=== PATIENT | male | born 1975 | race Caucasian/White ===

== ENCOUNTER 2018-02-14 13:49 | Emergency (ER) | payer OTHER ==
[~2018-02-14] VITALS: Ht 185.4 cm; Wt 145.2 kg
[~2018-02-14 13:49] MED LIST: (None)20 M1 PO; ALBU.083IS IH; ALBU90I INH; ALBU90OI INH; ALBU90OI6 INH; ALBUIS IH; AMOX500 PO; AZIT250 PO; AZIT500 PO; Advair Hfa 230-12 GM INH; CETI10 PO; DIPH50 PO; DOXY100 PO; ERYT500 PO; FLUSAL1005 IH; FLUSAL5005 INH; HYDACE5 PO; IBUP800 PO; IPRAIS NEB; KETO10 PO; NO ROUTINE MEDS; PRED10 PO; PRED20 PO; PRED5 PO; PROM25 PO; Percocet 5-3251 EACH PO; Prednisone20 MG PO; Ra Anti-Tussiv237 ML PO; SPACE CHAMBER1 EACH MC; Valium5 MG PO; Zithromax250 MG PO; Zofran8 MG PO
[2018-02-14] MEDS ORDERED: HEART MED (14:17)
[2018-02-14] MEDS ORDERED: IBUP800 PO (16:17)
== END 2018-02-14 16:28 | disposition home or self-care (01) ==
LOC: ER 13:49
DX: S81.811A Laceration without foreign body, right lower leg, initial encounter (principal); W22.8XXA Striking against or struck by other objects, initial encounter; Z88.8 Allergy status to other drugs, medicaments and biological substances; Z79.899 Other long term (current) drug therapy; Z79.52 Long term (current) use of systemic steroids; J45.909 Unspecified asthma, uncomplicated
CPT/HCPCS: 12001; 73590; 99283

== ENCOUNTER 2018-02-27 11:27 | Emergency (ER) | payer OTHER ==
[~2018-02-27] VITALS: Ht 188 cm; Wt 154.2 kg
[~2018-02-27 11:27] MED LIST changes: +HEART MED
[2018-02-27] MEDS ORDERED: CEPH500 PO (12:25)
== END 2018-02-27 12:32 | disposition home or self-care (01) ==
LOC: ER 11:27
DX: S81.811D Laceration without foreign body, right lower leg, subsequent encounter (principal); L03.115 Cellulitis of right lower limb; J45.909 Unspecified asthma, uncomplicated; Z88.8 Allergy status to other drugs, medicaments and biological substances; Z79.52 Long term (current) use of systemic steroids; Z79.2 Long term (current) use of antibiotics

== ENCOUNTER 2018-10-05 15:05 | Emergency (ER) | payer OTHER ==
[~2018-10-05] VITALS: Ht 188 cm; Wt 158.8 kg
[~2018-10-05 15:05] MED LIST changes: +CEPH500 PO
[2018-10-05] MEDS ORDERED: PRED20 PO (18:09)
== END 2018-10-05 18:18 | disposition home or self-care (01) ==
LOC: ER 15:05
DX: J40 Bronchitis, not specified as acute or chronic (principal); Z88.8 Allergy status to other drugs, medicaments and biological substances; Z79.899 Other long term (current) drug therapy; J45.909 Unspecified asthma, uncomplicated; F17.220 Nicotine dependence, chewing tobacco, uncomplicated
CPT/HCPCS: 71046; 99283-25

== ENCOUNTER 2019-02-22 15:38 | Inpatient (IN) | payer OTHER ==
[~2019-02-22] VITALS: Ht 182.9 cm; Wt 147.0 kg
[2019-02-22] MEDS ORDERED: BUDE10.22 INH (15:52)
[2019-02-22 16:31] LABS: BASOPHILS ABSOLUTE AUTO 0.08 K/mm3 (0.00-0.23); BASOPHILS PERCENT AUTO 1 % (0-2); EOSINOPHILS ABSOLUTE AUTO 0.14 K/mm3 (0.00-0.68); EOSINOPHILS PERCENT AUTO 1 % (0-6); Hematocrit 44.8 % (37.0-53.0); Hemoglobin 14.5 g/dL (13.5-17.5); IMMATURE GRAN ABSOLUTE AUTO 0.04 K/mm3 (0.00-0.10); IMMATURE GRAN PERCENT AUTO 0 % (0-1); LYMPHOCYTES ABSOLUTE AUTO 1.72 K/mm3 (0.84-5.20); LYMPHOCYTES PERCENT AUTO 15 % (21-46); MONOCYTES ABSOLUTE AUTO 1.37 K/mm3 (0.16-1.47); MONOCYTES PERCENT AUTO 12 % (4-13); Mean Corpuscular HGB Conc 32.4 g/dL (31.5-36.5); Mean Corpuscular Volume 96 fL (80-100); Mean Platelet Volume 10.7 fL (9.1-12.4); NEUTROPHILS ABSOLUTE AUTO 8.43 K/mm3 (1.96-9.15); NEUTROPHILS PERCENT AUTO 72 % (41-73); Platelet Count 185 K/mm3 (150-400); RDW Coefficient Variation 12.6 % (11.7-14.2); Red Blood Cell Count 4.67 M/mm3 (4.30-5.90); White Blood Cell Count 11.78 K/mm3 (4.00-11.30)
[2019-02-22 17:12] LABS: Alanine Aminotransfer (ALT/SGP 32 U/L (12-78); Albumin, Blood 3.7 g/dL (3.4-5.0); Albumin/Globulin Ratio 1.2 (0.8-1.8); Alk Phos 85 U/L (50-136); Anion Gap 7 mmol/L (6-16); Aspartate Aminotrans (AST/SGOT 22 U/L (12-37); Bilirubin, Total 0.5 mg/dL (0.1-1.0); Blood Urea Nitrogen 7 mg/dL (8-24); Bun/Creatinine Ratio 6.8 (12.0-20.0); CO2, Blood 28 mmol/L (21-32); Calcium, Blood 8.3 mg/dL (8.5-10.1); Chloride, Blood 107 mmol/L (98-108); Creatinine, Blood 1.03 mg/dL (0.60-1.20); Globulin, Blood 3.1 g/dL (2.2-4.0); Glomerular Filtration Rate >60 (60-); Glucose, Blood 101 mg/dL (70-99); Potassium, Blood 3.2 mmol/L (3.5-5.5); Sodium, Blood 142 mmol/L (136-145); Total Protein, Blood 6.8 g/dL (6.4-8.2); Troponin I 0.069 ng/mL (0.000-0.040)
[2019-02-22] MEDS ORDERED: Amlodipine Bes2.5 MG PO (17:54)
[2019-02-22] MEDS ORDERED: Depo-Testos200 MG/ML IM (18:26)
[2019-02-22] MEDS ORDERED: Vitamin D2000 UNIT PO (18:27)
[2019-02-22 22:46] LABS: Adenovirus Not Detected (NOT DETECT); Bordetella pertussis Not Detected (NOT DETECT); Chlamydophila pneumoniae Not Detected (NOT DETECT); Coronavirus 229E Not Detected (NOT DETECT); Coronavirus HKU1 Not Detected (NOT DETECT); Coronavirus NL63 Not Detected (NOT DETECT); Coronavirus OC43 Not Detected (NOT DETECT); Human Metapneumovirus Not Detected (NOT DETECT); Human Rhinovirus/Enterovirus Detected (NOT DETECT); Influenza A Not Detected (NOT DETECT); Influenza A/2009-H1 Not Detected (NOT DETECT); Influenza A/H1 Not Detected (NOT DETECT); Influenza A/H3 Not Detected (NOT DETECT); Influenza B Not Detected (NOT DETECT); Mycoplasma pneumoniae Not Detected (NOT DETECT); Parainfluenza Virus 1 Not Detected (NOT DETECT); Parainfluenza Virus 2 Not Detected (NOT DETECT); Parainfluenza Virus 3 Not Detected (NOT DETECT); Parainfluenza Virus 4 Not Detected (NOT DETECT); Respiratory Syncytial Virus Not Detected (NOT DETECT)
--- NOTE | 2019-02-23 04:52 | NUR ---
SHIFT SUMMARY RAPID RESPONSE CALLED ON PT AT START OF SHIFT. PT REPORTING THAT HE FELT IF HE COULDN'T BREATH. HAVING A DIFFICULT TIME SPEAKING AND APPEARED IF HE WAS GOING TO PASS OUT. LUNG SOUNDS TIGHT AND SOUNDING LIKE AIR WAS NOT MOVING. [employer] SOC[employer] PSYCHOLOGIST UP TO ROOM DURING RAPID. CPAP ORDERED ALONG WITH CONTINUOUS BIOX AND COPD/BD PROTOCOL. NEB TX ORDERED MORE FREQUENTLY. AFTER TWO NEB TX'S AND THE CPAP BEING PLACE PT FEELING BETTER. LUNGS SOUNDING MORE OPEN. PT REMAINED ON THE CPAP THROUGH MUCH OF THE NIGHT JUST REMOVING IT NOW AT 0445. TOLERATING WELL AT THIS TIME. OTHERWISE PT DENIES PAIN OR ANY OTHER COMPLAINTS. VSS. RESTING COMFORTABLY IN BED AT THIS TIME. WILL CONTINUE TO MONITOR AND REPORT TO DAY RN.
--- NOTE | 2019-02-23 09:10 | NUR ---
PT PLEASANT COOP A/O DENIES PAIN. STATES MOSTLY OKAY, SOMESOB WITH EXERTION. STATES OK AT THIS TIME. H/R REG, NO MURMER NOTED. NO TELE. LUNGS LIGHT WHEEZES T/O. ON R/A. CPAP WHEN SLEEPS OR SOB. BT X4 LAST BM TODAY. VOIDS PER BATHROOM. PT WALKS TO BATHROOM WELL. ALSO WANTS TO WALK IN HALLS SOME CAN. AGREED. REQUEST HE HAVE WITH HIM FOR AWHILE WITH WHEELCHAIR. BED IN LOW POSITION, CALL LITE IN REACH, CALLS APPROP
[2019-02-23 09:56] LABS: PCO2 Arterial 36.7 mmHg (35-45); PO2 Arterial 87.9 mmHg (80-100); pH Blood Arterial 7.44 (7.35-7.45)
--- NOTE | 2019-02-23 10:09 | NUR ---
PT STATES SOME SOB. PLACED CPAP ON PT. CONTINUE TO MONITOR. ADVISED HIM TO CALL [facility] IF NOT FEELING BETTER. O2 WAS AT 95% R/A PRIOR TO CPAP PLACE. RESP EASY, UNLABORED.
--- NOTE | 2019-02-23 10:20 | NUR ---
SPOKE TO R/T. SHE TO SEE HIM NOW. PT STATES NO WORSE, LIGHTLY BETTER, WILL GIVE BREATHING TX.
--- NOTE | 2019-02-23 18:14 | NUR ---
PT PLEASANT TODAY. DID WALK TO BERNABE WINDOWS . SOME SOB. EPISODES OF SOB T/O DAY. IMPROVED AT THIS TIME. HAS USED CPAP TO ASSIST T/O DAY OCCATIONALLY. ALSO BREATHING TX NEEDED. PT HOPING FOR HOME TOMORROW. STATES WALKED DOWN TO [employer] TODAY WITH FAMILY, BUT COULD NOT MAKE IT BACK. BROUGHT BACK IN CHAIR. NO OTHER CONCERNS AT THIS TIME. BED I NLOW POSITIOIN, CALL LITE IN REACH, CALLS APPROP
--- NOTE | 2019-02-23 21:07 | NUR ---
PATIENT REPORTS HA. JOIE JARRETT HOSPITALIST ORDERED TYLENOL 325-650 MG Q6 PRN.
--- NOTE | 2019-02-24 03:28 | NUR ---
SHIFT SUMMARY PATIENT HAD NO ACUTE CHANGES OBSERVED DURING THE SHIFT. AXOX 4 AND INDEPENDENT IN THE ROOM. FAMILY PRESENT AT SHIFT CHANGE. WALKED BERNABE WITH FAMILY. PIV REMAINS INTACT. RT IN FOR BREATHING TX. SOLU-MEDROL GIVEN PER EMAR. DENIES PAIN AND N/V. USES URINAL AT BEDSIDE. COOPERATIVE WITH CARE. CALL LIGHT IN REACH. BED IN LOWEST POSITION. WILL CONTINUE TO MONITOR UNTIL DAY SHIFT NURSE ASSUMES CARE.
[2019-02-24 04:30] LABS: Albumin, Blood 3.2 g/dL (3.4-5.0); Anion Gap 7 mmol/L (6-16); Blood Urea Nitrogen 17 mg/dL (8-24); Bun/Creatinine Ratio 17.1 (12.0-20.0); CO2, Blood 26 mmol/L (21-32); Calcium, Blood 8.7 mg/dL (8.5-10.1); Chloride, Blood 107 mmol/L (98-108); Glomerular Filtration Rate >60 (60-); Glucose, Blood 160 mg/dL (70-99); Phosphorus, Blood 2.9 mg/dL (2.5-4.9); Potassium, Blood 4.6 mmol/L (3.5-5.5); Sodium, Blood 140 mmol/L (136-145)
--- NOTE | 2019-02-24 18:06 | NUR ---
PT AOX4 AND COOPERATIVE OF CARE. PT HAS NEEDED RT CALLED FOR PRN TREATMENTS PT STILL HAS EPISODES OF CHEST FEELING TIGHT. BREATHING TREATMENTS SEEM TO RESOLVE THE PROBLEM AT THIS TIME. PT CALLS APPROPRIATELY AND IS INDEPENDENT IN ROOM. WILL CONTINUE TO MONITOR.
--- NOTE | 2019-02-24 22:57 | NUR ---
PATIENT RESTING. REPORTED SOB AT SHIFT CHANGE AND RT IN FOR BREATHING TX. PATIENT MORE ANXIOUS THAN LAST NOCX SHIFT. OFFERED MELATONIN 5 MG FOR INSOMNIA IN HIS EMAR BUT REFUSED. CALL LIGHT IN REACH.
--- NOTE | 2019-02-24 23:41 | NUR ---
PATIENT REPORTS HE PUT ON HIS CPAP WHEN HE FELT SOB AND HAD FAIRLY QUICK RELIEF. SOLU-MEDROL GIVEN PER EMAR AND RT IN FOR BREATHNG TX. CALL LIGHT IN REACH.
--- NOTE | 2019-02-25 03:12 | NUR ---
SHIFT SUMMARY PATIENT REPORTED HAVING A MINI ASTHMA EVENT AND PUT ON HIS BIPAP REPORTING HE GOT RELIEF QUICKLY. RT IN FOR MULTIPLE BREATHING TX. IV SOLU-MEDROL GIVEN PER EMAR. PATIENT IS AXOX 4 AND INDEPENDENT IN ROOM. REPORTED HE WANTED TO SLEEP BUT REFUSED MELATONIN 5 MG IN EMAR. PIV REMAINS INTACT. DENIES PAIN AND N/V. USES URINAL AT BEDSIDE. COOPERATIVE WITH CARE. CALL LIGHT IN REACH. BED IN LOWEST POSITION. WILL CONTINUE TO MONITOR UNTIL DAY SHIFT NURSE ASSUMES CARE.
[2019-02-25 05:02] LABS: PCO2 Arterial 41.1 mmHg (35-45); PO2 Arterial 97.1 mmHg (80-100); pH Blood Arterial 7.46 (7.35-7.45)
--- NOTE | 2019-02-25 16:08 | NUR ---
SHIFT SUMMARY THE PATIENT PRESENTED THIS SHIFT WITH VITALS WNL, A&O X4 AND WITH LUNG SOUNDS THAT WERE CLEAR, BUT DIM AT THE BASES. THE PATIENT'S DOCTOR ORDERED A BOLUS BAG OF FLUIDS, A CHEST X-RAY AND BLOOD CULTURES TO CHECK FOR OHER POSSIBLE PROBLEMS. THE PATIENT'S IV STARTED LEAKING AND WAS REPLACED. TH EPATIENT IS RESTING AT THIS TIME, WILL CONTINUE TO MONITOR.
--- NOTE | 2019-02-25 16:20 | NUR ---
SHIFT SUMMARY THE PATIENT PRESENTED THIS SHIFT WITH VITALS WNL, A&O X4 AND WITH LUNG SOUNDS THAT WERE CLEAR, BUT WHEEZEY IN THE BASES. THE PATIENT IS INDEPENDENT IN HIS ROOM. THE PATIENT'S FAMILY HAS VISITED THE PATIENT TODAY AND WENT FOR A WALK THE PATIENT. THE PATIENT IS VISITING WATCHING TV AT THIS TIME, WILL CONTINUE TO MONITOR.
--- NOTE | 2019-02-26 06:07 | NUR ---
Rn summary: Patient is alert and oriented. Pt has continued to have tightness in lungs on and off and has received several respiratory treatments. Patient lungs are diminished in the right base with wheezes present all other lobes. Pt has had his CPAP on during the night. Respiratory therapy feels he has a lot of anxiety with his asthma which makes it worse. Pt states he was only able to sleep 2.5 hours over this shift. Call light in reach. Will continue to monitor.
[2019-02-26] MEDS ORDERED: AMLO5 PO (11:16)
[2019-02-26] MEDS ORDERED: ALBU90OI INH (11:16)
[2019-02-26] MEDS ORDERED: MELATONIN5 M1 PO (11:17)
[2019-02-26] MEDS ORDERED: PRED10 PO (11:19)
[2019-02-26] MEDS ORDERED: ALBU2.5V5 NEB (11:20)
[2019-02-26] MEDS ORDERED: HYDCHL25 PO (11:20)
--- NOTE | 2019-02-26 12:33 | NUR ---
PATIENT DISCHARGE THE PATIENT WAS DISCHARGED HOME AFTER DISCHARGE INSTRUCTIONS WERE GIVEN TO THE PATIENT AND HIS SPOUSE. THE PATIENT WAS INSTRUCTED TO FOLLOW UP WITH HIS PCP AND TO BULB PACKER HIS PRESCRIPTIONS ORDERED. THE PATIENT LEFT THE HOSPITAL WALKING, WITHOUT CONCERN OR COMPLAINT.
== END 2019-02-26 12:12 | disposition home or self-care (01) | DRG 152 ==
LOC: ER 15:38 → MEDS 15:39 → ENPENDDIS 02-26 10:55 → MEDS 02-26 12:12
PROVIDERS: Emergency Medicine; ADMIT Internal Medicine
DX: J06.9 Acute upper respiratory infection, unspecified (principal); I21.A1 Myocardial infarction type 2; J45.41 Moderate persistent asthma with (acute) exacerbation; G47.33 Obstructive sleep apnea (adult) (pediatric); E87.6 Hypokalemia; F41.9 Anxiety disorder, unspecified; I10 Essential (primary) hypertension; E66.9 Obesity, unspecified; Z91.19 Patient's noncompliance with other medical treatment and regimen; B34.8 Other viral infections of unspecified site; F17.220 Nicotine dependence, chewing tobacco, uncomplicated; Z68.37 Body mass index [BMI] 37.0-37.9, adult
CPT/HCPCS: 36415; 36600; 71046; 80053; 80069; 82803; 83880; 84484; 85025; 87486; 87581; 87633; 87798; 93005; 93010; 94640; 94644; 94660; 94664; 94667; 94760; 94761; 94762; 96365; 96366; 96375; 96376; 98960; 99285-25; G0378; J2930; J3475; J7120; J7512

== ENCOUNTER 2019-03-20 11:52 | Emergency (ER) | payer OTHER ==
[~2019-03-20] VITALS: Ht 188 cm; Wt 175.1 kg
[~2019-03-20 11:52] MED LIST changes: +ALBU2.5V5 NEB; +AMLO5 PO; +Amlodipine Bes2.5 MG PO; +BUDE10.22 INH; +Depo-Testos200 MG/ML IM; +HYDCHL25 PO; +MELATONIN5 M1 PO; +Vitamin D2000 UNIT PO
[2019-03-20] MEDS ORDERED: FLUTICASONE-SA1 EAC5 INH (11:57)
[2019-03-20] MEDS ORDERED: Amlodipine Bes2.5 MG PO (11:58)
[2019-03-20] MEDS ORDERED: CEFU500T30 PO (12:26)
[2019-03-20] MEDS ORDERED: Prednisone20 MG PO (12:26)
[2019-03-20] MEDS ORDERED: ALBU90OI INH (12:26)
== END 2019-03-20 12:42 | disposition home or self-care (01) ==
LOC: ER 11:52
DX: J45.901 Unspecified asthma with (acute) exacerbation (principal); Z88.8 Allergy status to other drugs, medicaments and biological substances; Z79.899 Other long term (current) drug therapy; E66.9 Obesity, unspecified; I10 Essential (primary) hypertension; F17.220 Nicotine dependence, chewing tobacco, uncomplicated
CPT/HCPCS: 93005; 93010; 99284-25

== ENCOUNTER 2019-04-16 16:25 | Emergency (ER) | payer OTHER ==
[~2019-04-16] VITALS: Ht 185.4 cm; Wt 151.1 kg
[~2019-04-16 16:25] MED LIST changes: +CEFU500T30 PO; +FLUTICASONE-SA1 EAC5 INH
[2019-04-16 17:10] LABS: BASOPHILS ABSOLUTE AUTO 0.09 K/mm3 (0.00-0.23); BASOPHILS PERCENT AUTO 1 % (0-2); EOSINOPHILS ABSOLUTE AUTO 0.13 K/mm3 (0.00-0.68); EOSINOPHILS PERCENT AUTO 2 % (0-6); Hematocrit 45.4 % (37.0-53.0); IMMATURE GRAN ABSOLUTE AUTO 0.03 K/mm3 (0.00-0.10); IMMATURE GRAN PERCENT AUTO 0 % (0-1); LYMPHOCYTES ABSOLUTE AUTO 2.68 K/mm3 (0.84-5.20); LYMPHOCYTES PERCENT AUTO 36 % (21-46); MONOCYTES ABSOLUTE AUTO 0.83 K/mm3 (0.16-1.47); MONOCYTES PERCENT AUTO 11 % (4-13); Mean Corpuscular HGB 31.1 pg (26.0-34.0); Mean Corpuscular Volume 94 fL (80-100); Mean Platelet Volume 10.8 fL (9.1-12.4); NEUTROPHILS ABSOLUTE AUTO 3.74 K/mm3 (1.96-9.15); NEUTROPHILS PERCENT AUTO 50 % (41-73); Platelet Count 192 K/mm3 (150-400); RDW Coefficient Variation 12.7 % (11.7-14.2); RDW Standard Deviation 43.7 fL (35.1-46.3); Red Blood Cell Count 4.82 M/mm3 (4.30-5.90)
[2019-04-16 17:25] LABS: Albumin, Blood 3.7 g/dL (3.4-5.0); Albumin/Globulin Ratio 1.3 (0.8-1.8); Bilirubin, Total 0.6 mg/dL (0.1-1.0); Bun/Creatinine Ratio 6.9 (12.0-20.0); Calcium, Blood 8.7 mg/dL (8.5-10.1); Creatinine, Blood 1.59 mg/dL (0.60-1.20); Globulin, Blood 2.8 g/dL (2.2-4.0); Potassium, Blood 3.8 mmol/L (3.5-5.5); Total Protein, Blood 6.5 g/dL (6.4-8.2)
[2019-04-16 17:27] LABS: Source, Urine Clean Catch
[2019-04-16 17:40] LABS: Bilirubin, Urine Neg (Neg); Blood, Urine 5+ (Neg); Glucose Qualitative, Urine Neg (Neg); Ketones, Urine Neg (Neg); Leukocyte Esterase, Urine 1+ (Neg); Nitrite, Urine Neg (Neg); Protein, Urine 2+ (Neg); Specific Gravity, Urine 1.015 (1.003-1.022); Urobilinogen, Urine 2+ (Normal)
[2019-04-16 17:47] LABS: Appearance, Urine Cloudy (Clear); Color, Urine Amber (P-Yellow)
[2019-04-16 17:49] LABS: Bacteria Few /hpf; Red Blood Cells, Urine TNTC /hpf (0-2); Squamous Epithelial Cells Not Seen /hpf (Few)
[2019-04-16 18:33] LABS: Creatine Kinase MB 1.2 ng/mL (0.0-3.6); Creatine Kinase MB Index 0.8 (0.0-4.0)
[2019-04-16] MEDS ORDERED: CEFP200 PO (19:19)
[2019-04-16] MEDS ORDERED: Percocet 10-321 EACH PO (19:19)
[2019-04-16] MEDS ORDERED: Flomax0.4 MG PO (19:19)
== END 2019-04-16 19:38 | disposition home or self-care (01) ==
LOC: ER 16:25
PROVIDERS: Emergency Medicine
DX: N20.2 Calculus of kidney with calculus of ureter (principal); J45.909 Unspecified asthma, uncomplicated; Z88.8 Allergy status to other drugs, medicaments and biological substances
CPT/HCPCS: 36415; 74176; 80053; 81001; 82550; 82553; 83690; 85025; 87086; 96361; 96374; 96375; 99284-25; A9270; J1885; J2405; J3010; J7030

== ENCOUNTER 2019-06-26 18:15 | Emergency (ER) | payer OTHER ==
[~2019-06-26] VITALS: Ht 185.4 cm; Wt 136.1 kg
[~2019-06-26 18:15] MED LIST changes: +CEFP200 PO; +Flomax0.4 MG PO; +Percocet 10-321 EACH PO
[2019-06-26 18:52] LABS: BASOPHILS ABSOLUTE AUTO 0.07 K/mm3 (0.00-0.23); BASOPHILS PERCENT AUTO 0 % (0-2); EOSINOPHILS ABSOLUTE AUTO 0.11 K/mm3 (0.00-0.68); EOSINOPHILS PERCENT AUTO 1 % (0-6); Hematocrit 48.5 % (37.0-53.0); Hemoglobin 15.9 g/dL (13.5-17.5); IMMATURE GRAN ABSOLUTE AUTO 0.11 K/mm3 (0.00-0.10); IMMATURE GRAN PERCENT AUTO 1 % (0-1); LYMPHOCYTES ABSOLUTE AUTO 0.89 K/mm3 (0.84-5.20); LYMPHOCYTES PERCENT AUTO 5 % (21-46); MONOCYTES ABSOLUTE AUTO 1.98 K/mm3 (0.16-1.47); MONOCYTES PERCENT AUTO 11 % (4-13); Mean Corpuscular HGB 30.7 pg (26.0-34.0); Mean Corpuscular HGB Conc 32.8 g/dL (31.5-36.5); Mean Corpuscular Volume 94 fL (80-100); Mean Platelet Volume 10.8 fL (9.1-12.4); NEUTROPHILS ABSOLUTE AUTO 14.24 K/mm3 (1.96-9.15); NEUTROPHILS PERCENT AUTO 82 % (41-73); Platelet Count 188 K/mm3 (150-400); RDW Coefficient Variation 12.7 % (11.7-14.2); RDW Standard Deviation 43.8 fL (35.1-46.3); Red Blood Cell Count 5.18 M/mm3 (4.30-5.90)
[2019-06-26] MEDS ORDERED: TAMS.4ER PO (19:16)
[2019-06-26] MEDS ORDERED: FLUTICASONE-SA1 EAC5 INH (19:16)
[2019-06-26] MEDS ORDERED: Depo-Testos200 MG/ML IM (19:17)
[2019-06-26 19:25] LABS: Alanine Aminotransfer (ALT/SGP 27 U/L (12-78); Albumin, Blood 3.7 g/dL (3.4-5.0); Albumin/Globulin Ratio 1.2 (0.8-1.8); Alk Phos 79 U/L (50-136); Anion Gap 6 mmol/L (6-16); Aspartate Aminotrans (AST/SGOT 21 U/L (12-37); Bilirubin, Total 1.1 mg/dL (0.1-1.0); Blood Urea Nitrogen 14 mg/dL (8-24); CO2, Blood 24 mmol/L (21-32); Calcium, Blood 8.7 mg/dL (8.5-10.1); Chloride, Blood 109 mmol/L (98-108); Creatinine, Blood 1.08 mg/dL (0.60-1.20); Globulin, Blood 3.1 g/dL (2.2-4.0); Glomerular Filtration Rate >60 (60-); Glucose, Blood 113 mg/dL (70-99); Potassium, Blood 3.7 mmol/L (3.5-5.5); Sodium, Blood 139 mmol/L (136-145); Total Protein, Blood 6.8 g/dL (6.4-8.2)
[2019-06-26] MEDS ORDERED: Augmentin Xr 11 EACH PO (21:13)
[2019-06-26] MEDS ORDERED: PRED10 PO (21:13)
[2019-06-26] MEDS ORDERED: Zithromax250 MG PO (21:13)
[2019-06-26] MEDS ORDERED: ALBU3IS INH (21:15)
== END 2019-06-26 22:26 | disposition left against medical advice (07) ==
LOC: ER 18:15
PROVIDERS: Physician Assistant
DX: A41.9 Sepsis, unspecified organism (principal); J18.9 Pneumonia, unspecified organism; J45.909 Unspecified asthma, uncomplicated; I10 Essential (primary) hypertension; D72.829 Elevated white blood cell count, unspecified; Z87.442 Personal history of urinary calculi; Z88.8 Allergy status to other drugs, medicaments and biological substances; Z79.899 Other long term (current) drug therapy
CPT/HCPCS: 36415; 71046; 74176; 80053; 83605; 83690; 83880; 84484; 85025; 87040; 93005; 93010; 94640; 96361; 96365; 96367; 96375; 99285-25; J0456; J0696; J0780; J1170; J1200; J1885; J7050; J7120

== ENCOUNTER 2019-07-02 12:42 | Emergency (ER) | payer OTHER ==
[~2019-07-02] VITALS: Ht 188 cm; Wt 158.8 kg
[~2019-07-02 12:42] MED LIST changes: +ALBU3IS INH; +Augmentin Xr 11 EACH PO; +TAMS.4ER PO
[2019-07-02 13:19] LABS: BASOPHILS ABSOLUTE AUTO 0.07 K/mm3 (0.00-0.23); BASOPHILS PERCENT AUTO 1 % (0-2); EOSINOPHILS ABSOLUTE AUTO 0.03 K/mm3 (0.00-0.68); EOSINOPHILS PERCENT AUTO 0 % (0-6); Hematocrit 47.2 % (37.0-53.0); IMMATURE GRAN ABSOLUTE AUTO 0.18 K/mm3 (0.00-0.10); IMMATURE GRAN PERCENT AUTO 2 % (0-1); LYMPHOCYTES ABSOLUTE AUTO 1.53 K/mm3 (0.84-5.20); LYMPHOCYTES PERCENT AUTO 15 % (21-46); MONOCYTES ABSOLUTE AUTO 0.64 K/mm3 (0.16-1.47); MONOCYTES PERCENT AUTO 6 % (4-13); Mean Corpuscular HGB 29.9 pg (26.0-34.0); Mean Corpuscular HGB Conc 33.9 g/dL (31.5-36.5); Mean Platelet Volume 10.2 fL (9.1-12.4); NEUTROPHILS ABSOLUTE AUTO 7.72 K/mm3 (1.96-9.15); NEUTROPHILS PERCENT AUTO 76 % (41-73); Platelet Count 292 K/mm3 (150-400); RDW Coefficient Variation 12.2 % (11.7-14.2); RDW Standard Deviation 39.3 fL (35.1-46.3); Red Blood Cell Count 5.35 M/mm3 (4.30-5.90); White Blood Cell Count 10.17 K/mm3 (4.00-11.30)
[2019-07-02 13:29] LABS: Mean Corpuscular Volume 88 fL (80-100)
[2019-07-02 13:39] LABS: Alanine Aminotransfer (ALT/SGP 36 U/L (12-78); Albumin, Blood 3.6 g/dL (3.4-5.0); Albumin/Globulin Ratio 1.2 (0.8-1.8); Alk Phos 77 U/L (50-136); Anion Gap 8 mmol/L (6-16); Aspartate Aminotrans (AST/SGOT 16 U/L (12-37); Bilirubin, Total 0.5 mg/dL (0.1-1.0); Blood Urea Nitrogen 13 mg/dL (8-24); Bun/Creatinine Ratio 13.4 (12.0-20.0); CO2, Blood 24 mmol/L (21-32); Calcium, Blood 8.8 mg/dL (8.5-10.1); Chloride, Blood 110 mmol/L (98-108); Creatinine, Blood 0.97 mg/dL (0.60-1.20); Glomerular Filtration Rate >60 (60-); Glucose, Blood 164 mg/dL (70-99); Potassium, Blood 3.5 mmol/L (3.5-5.5); Sodium, Blood 142 mmol/L (136-145); Total Protein, Blood 6.6 g/dL (6.4-8.2)
[2019-07-02] MEDS ORDERED: ALBU90OI INH (16:48)
[2019-07-02] MEDS ORDERED: Vistaril25 MG PO (16:48)
== END 2019-07-02 17:06 | disposition home or self-care (01) ==
LOC: ER 12:42
PROVIDERS: Physician Assistant
DX: J18.9 Pneumonia, unspecified organism (principal); J45.909 Unspecified asthma, uncomplicated; Z88.8 Allergy status to other drugs, medicaments and biological substances; Z79.899 Other long term (current) drug therapy; Z79.52 Long term (current) use of systemic steroids; I10 Essential (primary) hypertension; F17.220 Nicotine dependence, chewing tobacco, uncomplicated
CPT/HCPCS: 36415; 71046; 71260; 80053; 84145; 84484; 85025; 93005; 93010; 99285-25; Q9967

== ENCOUNTER 2019-09-19 08:56 | Emergency (ER) | payer OTHER ==
[~2019-09-19] VITALS: Ht 185.4 cm; Wt 136.1 kg
[~2019-09-19 08:56] MED LIST changes: +Vistaril25 MG PO
[2019-09-19 09:37] LABS: BASOPHILS ABSOLUTE AUTO 0.09 K/mm3 (0.00-0.23); BASOPHILS PERCENT AUTO 1 % (0-2); EOSINOPHILS ABSOLUTE AUTO 0.09 K/mm3 (0.00-0.68); EOSINOPHILS PERCENT AUTO 1 % (0-6); Hematocrit 45.3 % (37.0-53.0); Hemoglobin 15.1 g/dL (13.5-17.5); IMMATURE GRAN ABSOLUTE AUTO 0.04 K/mm3 (0.00-0.10); IMMATURE GRAN PERCENT AUTO 0 % (0-1); LYMPHOCYTES PERCENT AUTO 19 % (21-46); MONOCYTES ABSOLUTE AUTO 1.25 K/mm3 (0.16-1.47); MONOCYTES PERCENT AUTO 12 % (4-13); Mean Corpuscular HGB 30.4 pg (26.0-34.0); Mean Corpuscular HGB Conc 33.3 g/dL (31.5-36.5); Mean Corpuscular Volume 91 fL (80-100); Mean Platelet Volume 10.5 fL (9.1-12.4); NEUTROPHILS ABSOLUTE AUTO 6.74 K/mm3 (1.96-9.15); NEUTROPHILS PERCENT AUTO 67 % (41-73); Platelet Count 196 K/mm3 (150-400); RDW Coefficient Variation 12.9 % (11.7-14.2); RDW Standard Deviation 42.7 fL (35.1-46.3); Red Blood Cell Count 4.96 M/mm3 (4.30-5.90); White Blood Cell Count 10.11 K/mm3 (4.00-11.30)
[2019-09-19] MEDS ORDERED: HYDHCL25 (09:37)
[2019-09-19 09:57] LABS: Alanine Aminotransfer (ALT/SGP 26 U/L (12-78); Albumin, Blood 3.5 g/dL (3.4-5.0); Albumin/Globulin Ratio 1.1 (0.8-1.8); Alk Phos 85 U/L (50-136); Anion Gap 6 mmol/L (6-16); Aspartate Aminotrans (AST/SGOT 17 U/L (12-37); Bilirubin, Total 0.6 mg/dL (0.1-1.0); Blood Urea Nitrogen 10 mg/dL (8-24); Bun/Creatinine Ratio 9.4 (12.0-20.0); CO2, Blood 26 mmol/L (21-32); Calcium, Blood 8.5 mg/dL (8.5-10.1); Chloride, Blood 109 mmol/L (98-108); Creatinine, Blood 1.06 mg/dL (0.60-1.20); Globulin, Blood 3.2 g/dL (2.2-4.0); Glomerular Filtration Rate >60 (60-); Glucose, Blood 104 mg/dL (70-99); Potassium, Blood 4.3 mmol/L (3.5-5.5); Sodium, Blood 141 mmol/L (136-145); Total Protein, Blood 6.7 g/dL (6.4-8.2)
[2019-09-19] MEDS ORDERED: Albuterol2.5 MG/0.5 INH (10:12)
[2019-09-19] MEDS ORDERED: Prednisone20 MG PO (10:12)
[2019-09-19] MEDS ORDERED: ALBU90OI INH (10:12)
[2019-09-19 10:34] LABS: Influenza A Negative (NEGATIVE); Influenza B Negative (NEGATIVE)
== END 2019-09-19 10:51 | disposition home or self-care (01) ==
LOC: ER 08:56
PROVIDERS: Emergency Medicine; Physician Assistant
DX: J45.901 Unspecified asthma with (acute) exacerbation (principal); I10 Essential (primary) hypertension; Z88.8 Allergy status to other drugs, medicaments and biological substances; Z79.2 Long term (current) use of antibiotics; Z79.899 Other long term (current) drug therapy
CPT/HCPCS: 36415; 71046; 80053; 85025; 87804; 94640; 96374; 99285-25; J2930

== ENCOUNTER 2019-12-03 13:04 | Emergency (ER) | payer OTHER ==
[~2019-12-03] VITALS: Ht 188 cm; Wt 140.6 kg
[~2019-12-03 13:04] MED LIST changes: +Albuterol2.5 MG/0.5 INH; +HYDHCL25
[2019-12-03 14:25] LABS: BASOPHILS ABSOLUTE AUTO 0.06 K/mm3 (0.00-0.23); BASOPHILS PERCENT AUTO 1 % (0-2); EOSINOPHILS ABSOLUTE AUTO 0.12 K/mm3 (0.00-0.68); EOSINOPHILS PERCENT AUTO 2 % (0-6); Hematocrit 44.6 % (37.0-53.0); Hemoglobin 14.6 g/dL (13.5-17.5); IMMATURE GRAN ABSOLUTE AUTO 0.03 K/mm3 (0.00-0.10); IMMATURE GRAN PERCENT AUTO 0 % (0-1); LYMPHOCYTES ABSOLUTE AUTO 2.29 K/mm3 (0.84-5.20); LYMPHOCYTES PERCENT AUTO 30 % (21-46); MONOCYTES ABSOLUTE AUTO 0.92 K/mm3 (0.16-1.47); MONOCYTES PERCENT AUTO 12 % (4-13); Mean Corpuscular HGB 31.3 pg (26.0-34.0); Mean Corpuscular HGB Conc 32.7 g/dL (31.5-36.5); Mean Corpuscular Volume 96 fL (80-100); Mean Platelet Volume 10.2 fL (9.1-12.4); NEUTROPHILS ABSOLUTE AUTO 4.33 K/mm3 (1.96-9.15); NEUTROPHILS PERCENT AUTO 56 % (41-73); Platelet Count 223 K/mm3 (150-400); RDW Coefficient Variation 12.5 % (11.7-14.2); RDW Standard Deviation 44.4 fL (35.1-46.3); Red Blood Cell Count 4.66 M/mm3 (4.30-5.90); White Blood Cell Count 7.75 K/mm3 (4.00-11.30)
[2019-12-03 14:42] LABS: Source, Urine Clean Catch
[2019-12-03 14:44] LABS: Blood, Urine 5+ (Neg); Glucose Qualitative, Urine Neg (Neg); Ketones, Urine 1+ (Neg); Leukocyte Esterase, Urine 1+ (Neg); Nitrite, Urine Pos (Neg); Protein, Urine 2+ (Neg); Urobilinogen, Urine 1+ (Normal)
[2019-12-03 14:44] LABS: Alanine Aminotransfer (ALT/SGP 24 U/L (12-78); Albumin, Blood 3.6 g/dL (3.4-5.0); Albumin/Globulin Ratio 1.2 (0.8-1.8); Alk Phos 70 U/L (50-136); Anion Gap 2 mmol/L (6-16); Aspartate Aminotrans (AST/SGOT 21 U/L (12-37); Bilirubin, Total 0.7 mg/dL (0.1-1.0); Blood Urea Nitrogen 11 mg/dL (8-24); CO2, Blood 28 mmol/L (21-32); Calcium, Blood 8.8 mg/dL (8.5-10.1); Chloride, Blood 111 mmol/L (98-108); Globulin, Blood 2.9 g/dL (2.2-4.0); Glomerular Filtration Rate >60 (60-); Glucose, Blood 110 mg/dL (70-99); Potassium, Blood 3.9 mmol/L (3.5-5.5); Sodium, Blood 141 mmol/L (136-145); Total Protein, Blood 6.5 g/dL (6.4-8.2)
[2019-12-03 14:46] LABS: Appearance, Urine Cloudy (Clear); Bilirubin, Urine 1+ (Neg); Color, Urine Amber (P-Yellow)
[2019-12-03 14:49] LABS: Red Blood Cells, Urine TNTC /hpf (0-2)
[2019-12-03 14:50] LABS: Amorphous Light (0-Heavy); Bacteria Many /hpf; Calcium Oxalate Crystals Few /hpf; Mucus Light (0-Heavy); Squamous Epithelial Cells Rare /hpf (Few)
[2019-12-03] MEDS ORDERED: CEFD300 PO (18:13)
[2019-12-03] MEDS ORDERED: Percocet 5-3251 EACH PO (18:13)
[2019-12-03] MEDS ORDERED: Flomax0.4 MG PO (18:13)
== END 2019-12-03 18:20 | disposition home or self-care (01) ==
LOC: ER 13:04
PROVIDERS: Physician Assistant
DX: N20.2 Calculus of kidney with calculus of ureter (principal); N39.0 Urinary tract infection, site not specified; J45.909 Unspecified asthma, uncomplicated; F17.220 Nicotine dependence, chewing tobacco, uncomplicated; Z79.899 Other long term (current) drug therapy
CPT/HCPCS: 36415; 74176; 80053; 81001; 85025; 87086; 94640; 96365; 96375; 99284-25; A9270; J0696; J1170; J1885; J2405

== ENCOUNTER 2019-12-15 08:56 | Emergency (ER) | payer OTHER ==
[~2019-12-15] VITALS: Ht 188 cm; Wt 145.2 kg
[~2019-12-15 08:56] MED LIST changes: +CEFD300 PO
[2019-12-15 09:59] LABS: BASOPHILS ABSOLUTE AUTO 0.05 K/mm3 (0.00-0.23); BASOPHILS PERCENT AUTO 0 % (0-2); EOSINOPHILS ABSOLUTE AUTO 0.01 K/mm3 (0.00-0.68); EOSINOPHILS PERCENT AUTO 0 % (0-6); Hematocrit 43.7 % (37.0-53.0); Hemoglobin 14.6 g/dL (13.5-17.5); IMMATURE GRAN ABSOLUTE AUTO 0.03 K/mm3 (0.00-0.10); IMMATURE GRAN PERCENT AUTO 0 % (0-1); LYMPHOCYTES ABSOLUTE AUTO 1.52 K/mm3 (0.84-5.20); LYMPHOCYTES PERCENT AUTO 14 % (21-46); MONOCYTES ABSOLUTE AUTO 1.62 K/mm3 (0.16-1.47); MONOCYTES PERCENT AUTO 15 % (4-13); Mean Corpuscular HGB 31.2 pg (26.0-34.0); Mean Corpuscular HGB Conc 33.4 g/dL (31.5-36.5); Mean Platelet Volume 10.4 fL (9.1-12.4); NEUTROPHILS ABSOLUTE AUTO 7.95 K/mm3 (1.96-9.15); NEUTROPHILS PERCENT AUTO 71 % (41-73); Platelet Count 191 K/mm3 (150-400); RDW Coefficient Variation 12.9 % (11.7-14.2); RDW Standard Deviation 43.8 fL (35.1-46.3); Red Blood Cell Count 4.68 M/mm3 (4.30-5.90); White Blood Cell Count 11.18 K/mm3 (4.00-11.30)
[2019-12-15 10:03] LABS: Mean Corpuscular Volume 93 fL (80-100)
[2019-12-15 10:16] LABS: Source, Urine Clean Catch
[2019-12-15 10:21] LABS: Alanine Aminotransfer (ALT/SGP 33 U/L (12-78); Albumin, Blood 3.6 g/dL (3.4-5.0); Albumin/Globulin Ratio 1.2 (0.8-1.8); Anion Gap 5 mmol/L (6-16); Aspartate Aminotrans (AST/SGOT 8 U/L (12-37); Bilirubin, Total 0.9 mg/dL (0.1-1.0); Blood Urea Nitrogen 16 mg/dL (8-24); Bun/Creatinine Ratio 16.6 (12.0-20.0); CO2, Blood 28 mmol/L (21-32); Calcium, Blood 8.6 mg/dL (8.5-10.1); Chloride, Blood 108 mmol/L (98-108); Creatinine, Blood 0.97 mg/dL (0.60-1.20); Globulin, Blood 2.9 g/dL (2.2-4.0); Glomerular Filtration Rate >60 (60-); Glucose, Blood 111 mg/dL (70-99); Potassium, Blood 3.7 mmol/L (3.5-5.5); Sodium, Blood 141 mmol/L (136-145); Total Protein, Blood 6.5 g/dL (6.4-8.2)
[2019-12-15 10:22] LABS: Alk Phos 74 U/L (50-136)
[2019-12-15 10:22] LABS: Blood, Urine 5+ (Neg); Glucose Qualitative, Urine Neg (Neg); Ketones, Urine 1+ (Neg); Leukocyte Esterase, Urine 2+ (Neg); Nitrite, Urine Neg (Neg); Protein, Urine 3+ (Neg); Urobilinogen, Urine 2+ (Normal)
[2019-12-15 10:29] LABS: Appearance, Urine Turbid (Clear); Bacteria Few /hpf; Bilirubin, Urine 1+ (Neg); Color, Urine Amber (P-Yellow); Red Blood Cells, Urine TNTC /hpf (0-2); Squamous Epithelial Cells Not Seen /hpf (Few); White Blood Cells, Urine 25-50 /hpf (0-5)
[2019-12-15] MEDS ORDERED: ONDA4ODT MM (13:13)
[2019-12-15] MEDS ORDERED: Cipro500 MG PO (13:13)
== END 2019-12-15 13:35 | disposition home or self-care (01) ==
LOC: ER 08:56
PROVIDERS: Emergency Medicine
DX: K52.9 Noninfective gastroenteritis and colitis, unspecified (principal); N39.0 Urinary tract infection, site not specified; J45.909 Unspecified asthma, uncomplicated; Z79.899 Other long term (current) drug therapy
CPT/HCPCS: 36415; 74177; 80053; 81001; 83690; 85025; 87086; 96361; 96374-59; 96375-59; 99285-25; J2405; J3010; J7030; Q9967

== ENCOUNTER 2019-12-17 22:31 | Emergency (ER) | payer OTHER ==
[~2019-12-17] VITALS: Ht 188 cm; Wt 145.2 kg
[~2019-12-17 22:31] MED LIST changes: +Cipro500 MG PO; +ONDA4ODT MM
[2019-12-17 23:20] LABS: BASOPHILS ABSOLUTE AUTO 0.06 K/mm3 (0.00-0.23); BASOPHILS PERCENT AUTO 1 % (0-2); EOSINOPHILS ABSOLUTE AUTO 0.19 K/mm3 (0.00-0.68); EOSINOPHILS PERCENT AUTO 2 % (0-6); Hematocrit 43.5 % (37.0-53.0); Hemoglobin 14.5 g/dL (13.5-17.5); IMMATURE GRAN ABSOLUTE AUTO 0.04 K/mm3 (0.00-0.10); IMMATURE GRAN PERCENT AUTO 0 % (0-1); LYMPHOCYTES ABSOLUTE AUTO 2.37 K/mm3 (0.84-5.20); LYMPHOCYTES PERCENT AUTO 23 % (21-46); MONOCYTES PERCENT AUTO 12 % (4-13); Mean Corpuscular HGB 30.9 pg (26.0-34.0); Mean Corpuscular HGB Conc 33.3 g/dL (31.5-36.5); Mean Corpuscular Volume 93 fL (80-100); Mean Platelet Volume 10.4 fL (9.1-12.4); NEUTROPHILS ABSOLUTE AUTO 6.54 K/mm3 (1.96-9.15); NEUTROPHILS PERCENT AUTO 63 % (41-73); Platelet Count 238 K/mm3 (150-400); RDW Coefficient Variation 12.4 % (11.7-14.2); RDW Standard Deviation 42.9 fL (35.1-46.3)
[2019-12-17 23:32] LABS: Alanine Aminotransfer (ALT/SGP 26 U/L (12-78); Albumin, Blood 3.5 g/dL (3.4-5.0); Alk Phos 75 U/L (50-136); Anion Gap 8 mmol/L (6-16); Aspartate Aminotrans (AST/SGOT 15 U/L (12-37); Bilirubin, Total 0.6 mg/dL (0.1-1.0); Blood Urea Nitrogen 11 mg/dL (8-24); Bun/Creatinine Ratio 8.3 (12.0-20.0); CO2, Blood 28 mmol/L (21-32); Calcium, Blood 9.1 mg/dL (8.5-10.1); Chloride, Blood 104 mmol/L (98-108); Creatinine, Blood 1.32 mg/dL (0.60-1.20); Globulin, Blood 3.5 g/dL (2.2-4.0); Glomerular Filtration Rate >60 (60-); Glucose, Blood 115 mg/dL (70-99); Potassium, Blood 4.1 mmol/L (3.5-5.5); Sodium, Blood 140 mmol/L (136-145)
[2019-12-18 01:55] LABS: Source, Urine Clean Catch
[2019-12-18 01:59] LABS: Appearance, Urine Hazy (Clear); Bilirubin, Urine Neg (Neg); Blood, Urine 5+ (Neg); Color, Urine Brown (P-Yellow); Glucose Qualitative, Urine Neg (Neg); Ketones, Urine Neg (Neg); Leukocyte Esterase, Urine 2+ (Neg); Nitrite, Urine Neg (Neg); Protein, Urine 3+ (Neg); Specific Gravity, Urine 1.015 (1.003-1.022); Urobilinogen, Urine NORM (Normal)
[2019-12-18 02:04] LABS: Red Blood Cells, Urine TNTC /hpf (0-2)
[2019-12-18 02:05] LABS: Bacteria Many /hpf; Mucus Light (0-Heavy); Squamous Epithelial Cells Not Seen /hpf (Few)
== END 2019-12-18 04:37 | disposition home or self-care (01) ==
LOC: ER 22:31
PROVIDERS: Emergency Medicine; Physician Assistant
DX: N13.30 Unspecified hydronephrosis (principal); Z88.8 Allergy status to other drugs, medicaments and biological substances; Z79.899 Other long term (current) drug therapy; J45.909 Unspecified asthma, uncomplicated; F17.220 Nicotine dependence, chewing tobacco, uncomplicated
CPT/HCPCS: 36415; 74176; 76770; 80053; 81001; 83690; 84145; 85025; 87086; 96361; 96374; 96375; 99284-25; J1170; J1885; J2405; J7030

== ENCOUNTER 2020-02-20 16:04 | Emergency (ER) | payer OTHER ==
[2020-02-20] MEDS ORDERED: Roxicodone5 MG PO (17:26)
[2020-02-20] MEDS ORDERED: Prednisone20 MG PO (17:26)
== END 2020-02-20 17:38 | disposition home or self-care (01) ==
DX: M77.12 Lateral epicondylitis, left elbow (principal); L23.9 Allergic contact dermatitis, unspecified cause; J45.909 Unspecified asthma, uncomplicated; F17.220 Nicotine dependence, chewing tobacco, uncomplicated; Z88.8 Allergy status to other drugs, medicaments and biological substances; Z79.899 Other long term (current) drug therapy; Z79.51 Long term (current) use of inhaled steroids

== ENCOUNTER 2020-05-21 17:54 | Emergency (ER) | payer OTHER ==
[~2020-05-21] VITALS: Ht 188 cm; Wt 132.2 kg
[~2020-05-21 17:54] MED LIST changes: +Roxicodone5 MG PO
[2020-05-21] MEDS ORDERED: Prednisone20 MG PO (19:57)
[2020-05-21] MEDS ORDERED: ALBU90OI INH (19:57)
== END 2020-05-21 20:14 | disposition home or self-care (01) ==
LOC: ER 17:54
DX: J45.901 Unspecified asthma with (acute) exacerbation (principal); Z76.0 Encounter for issue of repeat prescription; Z88.8 Allergy status to other drugs, medicaments and biological substances; Z79.899 Other long term (current) drug therapy; F17.220 Nicotine dependence, chewing tobacco, uncomplicated
CPT/HCPCS: 94640; 99284-25; J1100